=== PATIENT | female | born 1940 | race Asian ===

== ENCOUNTER 2021-11-06 18:28 | Inpatient (IN) | payer MEDICARE, OTHER ==
[~2021-11-06] VITALS: Ht 162.6 cm; Wt 105.2 kg
[2021-11-06] MEDS ORDERED: CARV6.25 PO (18:53)
[2021-11-06] MEDS ORDERED: CLOP75TA2 PO (18:53)
[2021-11-06] MEDS ORDERED: SIMV40TA20 PO (18:53)
[2021-11-06] MEDS ORDERED: WARF-23 PO (18:53)
[2021-11-06 19:25] LABS: HEMATOCRIT 48.3 % (36.0-47.0); MEAN CORPUSCULAR HEMOGLOBIN 32.3 pg (27.0-33.0); MEAN CORPUSCULAR HGB CONC 31.1 g/dl (32.0-36.5); MEAN CORPUSCULAR VOLUME 104.1 fl (80.0-96.0); RED BLOOD COUNT 4.64 10^6/uL (4.00-5.40); WHITE BLOOD COUNT 4.2 10^3/uL (4.0-10.0)
[2021-11-06 19:57] LABS: PLATELET COUNT, AUTOMATED 97 10^3/uL (150-450)
[2021-11-06 20:07] LABS: ALBUMIN 3.3 GM/DL (3.2-5.2); BILIRUBIN,DIRECT 0.2 MG/DL (0.0-0.2); BILIRUBIN,TOTAL 1.4 MG/DL (0.2-1.0); CALCIUM LEVEL 9.2 MG/DL (8.8-10.2); CREATININE FOR GFR 2.11 MG/DL (0.55-1.30); FREE T4 1.28 NG/DL (0.76-1.46); POTASSIUM SERUM 5.8 MEQ/L (3.5-5.1); THYROID STIMULATING HORMONE 10.7 uIU/ML (0.358-3.740)
[2021-11-06 20:08] LABS: ATYPICAL LYMPH 2 % (0-5); BASOPHILS 2 % (0-1); EOSINOPHILS 1 % (0-3); LYMPHOCYTES 33 % (16-44); MONOCYTES 2 % (0-5); NEUTROPHILS 60 % (28-66)
[2021-11-06 20:09] LABS: ANISOCYTOSIS 1+; PLATELET ESTIMATE DECREASED (NORMAL)
[2021-11-06] MEDS ORDERED: FUROSEMIDE 40MG/4ML VIAL (J1940) IV ONE (20:10)
[2021-11-06 20:18] LABS: CK-MB VALUE MASS 11.6 NG/ML (<3.6); MB/CK RELATIVE INDEX 5.95 (< OR =4)
[2021-11-06] MEDS ORDERED: HOME MED LIST COMPLETE! XX SCH (21:15)
[2021-11-06] MEDS ORDERED: BENZONATATE 100MG CAPSULE PO PRN (21:15)
[2021-11-06] MEDS ORDERED: IPRATROPIUM 0.5MG/ALBUTEROL 2.5MG INH SOL UD 3ML (DUONEB) NEB PRN (21:15)
[2021-11-06 23:01] LABS: MB/CK RELATIVE INDEX 5.58 (< OR =4)
[2021-11-06 23:28] LABS: INR 2.5; PROTHROMBIN TIME 27.4 SECONDS (12.7-14.5)
[2021-11-06 23:30] LABS: PARTIAL THROMBOPLASTIN TIME 86.1 SECONDS (25.9-37.0)
[2021-11-07] VITALS (36 sets, daily range): BP systolic 86–150; BP diastolic 47–93; O2SAT 89–98
[2021-11-07 02:40] LABS: CK-MB VALUE MASS 13.3 NG/ML (<3.6); MB/CK RELATIVE INDEX 6.58 (< OR =4)
[2021-11-07] MEDS ORDERED: ALBUTEROL SULFATE 2.5 MG/0.5 ML INH NEB SOLN NEB PRN (04:05)
[2021-11-07] MEDS: IPRATROPIUM 0.5MG/ALBUTEROL 2.5MG INH SOL UD 3ML (DUONEB) NEB SCH ×2 (04:50→08:00)
[2021-11-07 04:59] LABS: ABG BASE EXCESS -4.5 (-2.0-2.0); ABG HCO3 23.1 MEQ/L (22.0-26.0); ABG O2 SATURATION 97.2 % (95.0-99.0); ABG PARTIAL PRESSURE CO2 52.6 mmHg (35.0-45.0); ABG STANDARD HCO3 20.8 MEQ/L (22.0-26.0); ABG TOTAL CO2 24.7 MEQ/L (23.0-31.0); ABG pH (ARTERIAL) 7.261 UNITS (7.350-7.450)
[2021-11-07] MEDS ORDERED: FUROSEMIDE 40MG/4ML VIAL (J1940) IV ONE ×2 (05:00→19:55)
[2021-11-07 06:11] LABS: VENOUS BASE EXCESS -4.6 (-2.0-2.0); VENOUS HCO3 23.6 MEQ/L (23.0-27.0); VENOUS O2 SATURATION 91.9 % (60.0-80.0); VENOUS PARTIAL PRESSURE CO2 56.2 mmHg (38.0-50.0); VENOUS PARTIAL PRESSURE O2 72.8 mmHg (30.0-50.0); VENOUS PH 7.241 UNITS (7.330-7.430); VENOUS STANDARD HCO3 20.6 MEQ/L; VENOUS TOTAL CO2 25.3 MEQ/L (24.0-28.0)
[2021-11-07 06:18] LABS: BASO % 0.5 % (0.0-1.0); EOS # 0.1 10^3/uL (0.0-0.5); EOS % 1.8 % (0.0-3.0); HEMATOCRIT 43.3 % (36.0-47.0); HEMOGLOBIN 13.6 g/dl (12.0-15.5); LYMPH # 1.2 10^3/uL (1.5-5.0); LYMPH % 31.6 % (24.0-44.0); MEAN CORPUSCULAR HEMOGLOBIN 32.5 pg (27.0-33.0); MEAN CORPUSCULAR HGB CONC 31.4 g/dl (32.0-36.5); MEAN CORPUSCULAR VOLUME 103.3 fl (80.0-96.0); MONO # 0.5 10^3/uL (0.0-0.8); MONO % 11.7 % (2.0-8.0); NEUTROPHILS # 2.1 10^3/uL (1.5-8.5); NEUTROPHILS % 54.1 % (36.0-66.0); RED BLOOD COUNT 4.19 10^6/uL (4.00-5.40); WHITE BLOOD COUNT 3.9 10^3/uL (4.0-10.0)
[2021-11-07 06:28] LABS: INR 2.84; PROTHROMBIN TIME 30.2 SECONDS (12.7-14.5)
[2021-11-07] MEDS: AZITHROMYCIN INJ 500 MG, VIAL MATE ADAPTER 1 EACH in NS 250 ML IV SCH (06:29)
[2021-11-07] MEDS ORDERED: PLAV1TAB2 PO (06:40)
[2021-11-07] MEDS ORDERED: CARV6.25 PO (06:40)
[2021-11-07] MEDS ORDERED: FURO40TA2 PO (06:40)
[2021-11-07] MEDS ORDERED: SIMV40TA20 PO (06:40)
[2021-11-07] MEDS ORDERED: WARF-23 PO (06:40)
[2021-11-07] MEDS ORDERED: PATIENT COMMENT (06:40)
[2021-11-07 06:43] LABS: PLATELET COUNT, AUTOMATED 57 10^3/uL (150-450)
[2021-11-07 06:47] LABS: HEMOGLOBIN A1c 5.5 %
[2021-11-07 06:51] LABS: CK-MB VALUE MASS 14.1 NG/ML (<3.6); MB/CK RELATIVE INDEX 7.54 (< OR =4)
[2021-11-07 07:01] LABS: CALCIUM LEVEL 9.2 MG/DL (8.8-10.2); CREATININE FOR GFR 1.88 MG/DL (0.55-1.30); GLOMERULAR FILTRATION RATE 27.4 (>32)
[2021-11-07 07:02] LABS: PHOSPHORUS LEVEL 4.6 MG/DL (2.5-4.9)
[2021-11-07] MEDS: cefTRIAXone SOD 1 GM in D5W MINI-BAG PLUS 50 ML IV SCH (08:59)
[2021-11-07] MEDS: FUROSEMIDE 40MG/4ML VIAL (J1940) IV SCH ×2 (09:00→18:29)
[2021-11-07 09:42] LABS: PTH INTACT 281.5 PG/ML (18.5-88.0)
[2021-11-07] MEDS ORDERED: D10W 1,000 ML IV SCH (12:30)
[2021-11-07] MEDS ORDERED: DEXTROSE 50% 50 ML SYRINGE IV STA ×2 (12:32)
[2021-11-07] MEDS ORDERED: LIDOCAINE 1% MDV 20ML VIAL As Ordered ONE (12:33)
[2021-11-07] MEDS ORDERED: GLUCAGON INJ 1MG VIAL SC PRN (12:35)
[2021-11-07] MEDS ORDERED: DEXTROSE 50% 50 ML SYRINGE IV PRN (12:35)
[2021-11-07] MEDS ORDERED: GLUCOSE 4GM CHEW TABLET PO PRN (12:35)
[2021-11-07] MEDS: CLOPIDOGREL 75 MG TAB PO SCH (13:31)
[2021-11-07] MEDS: LEVALBUTEROL 1.25 MG/0.5 ML CONCENTRATE NEB NEB SCH ×3 (13:46→19:49)
[2021-11-07] MEDS ORDERED: DOBUTamine HCL 500,000 MCG in IV 1 EA IV SCH (16:35)
[2021-11-07] MEDS ORDERED: WARFARIN SOD 5MG TAB PO SCH (17:00)
[2021-11-07] MEDS ORDERED: DOPamine HCL 400 MG in IV 1 EA IV SCH (17:05)
[2021-11-07 17:35] LABS: ABG BASE EXCESS -5.1 (-2.0-2.0); ABG HCO3 20.7 MEQ/L (22.0-26.0); ABG O2 SATURATION 98.6 % (95.0-99.0); ABG PARTIAL PRESSURE CO2 41.1 mmHg (35.0-45.0); ABG PARTIAL PRESSURE O2 125.7 mmHg (75.0-100.0); ABG STANDARD HCO3 20.3 MEQ/L (22.0-26.0)
[2021-11-07] MEDS: DOBUTamine HCL 500,000 MCG in IV 1 EA IV SCH (18:34)
[2021-11-07] MEDS: SIMVASTATIN 40 MG TAB PO SCH ×3 (20:21→20:29)
[2021-11-08] VITALS (24 sets, daily range): BP systolic 104–142; BP diastolic 21–91
[2021-11-08] MEDS: FUROSEMIDE 40MG/4ML VIAL (J1940) IV SCH ×6 (00:13→20:00)
[2021-11-08] MEDS: AZITHROMYCIN INJ 500 MG, VIAL MATE ADAPTER 1 EACH in NS 250 ML IV SCH (04:16)
[2021-11-08 04:58] LABS: BASO % 0.5 % (0.0-1.0); EOS # 0.1 10^3/uL (0.0-0.5); EOS % 1.6 % (0.0-3.0); HEMATOCRIT 41.5 % (36.0-47.0); HEMOGLOBIN 13.1 g/dl (12.0-15.5); LYMPH # 1.1 10^3/uL (1.5-5.0); LYMPH % 24.9 % (24.0-44.0); MEAN CORPUSCULAR HEMOGLOBIN 32.6 pg (27.0-33.0); MEAN CORPUSCULAR HGB CONC 31.6 g/dl (32.0-36.5); MEAN CORPUSCULAR VOLUME 103.2 fl (80.0-96.0); MONO # 0.5 10^3/uL (0.0-0.8); MONO % 11.9 % (2.0-8.0); NEUTROPHILS # 2.6 10^3/uL (1.5-8.5); NEUTROPHILS % 60.6 % (36.0-66.0); RED BLOOD COUNT 4.02 10^6/uL (4.00-5.40); WHITE BLOOD COUNT 4.3 10^3/uL (4.0-10.0)
[2021-11-08 05:01] LABS: PLATELET COUNT, AUTOMATED 61 10^3/uL (150-450)
[2021-11-08 05:11] LABS: CALCIUM LEVEL 8.9 MG/DL (8.8-10.2); CREATININE FOR GFR 1.91 MG/DL (0.55-1.30); GLOMERULAR FILTRATION RATE 26.9 (>32); INR 3.12; POTASSIUM SERUM 3.7 MEQ/L (3.5-5.1); PROTHROMBIN TIME 32.4 SECONDS (12.7-14.5); TOTAL PROTEIN 5.9 GM/DL (6.4-8.2)
[2021-11-08] MEDS: cefTRIAXone SOD 1 GM in D5W MINI-BAG PLUS 50 ML IV SCH (05:36)
[2021-11-08] MEDS: LEVALBUTEROL 1.25 MG/0.5 ML CONCENTRATE NEB NEB SCH ×4 (07:43→19:46)
[2021-11-08] MEDS: CLOPIDOGREL 75 MG TAB PO SCH (09:00)
[2021-11-08] MEDS: SODIUM CHLORIDE 0.9% INJ 10 ML SYR IV SCH (17:59)
[2021-11-08] MEDS: ACETAMINOPHEN TAB 650MG DOSE (2X325MG) PO PRN (18:00)
[2021-11-08] MEDS: DOBUTamine HCL 500,000 MCG in IV 1 EA IV SCH (18:01)
[2021-11-08 19:01] LABS: CALCIUM LEVEL 8.6 MG/DL (8.8-10.2); CREATININE FOR GFR 1.79 MG/DL (0.55-1.30); POTASSIUM SERUM 3.4 MEQ/L (3.5-5.1)
[2021-11-08] MEDS ORDERED: POTASSIUM CHLORIDE 10MEQ SR TABLET PO ONE (20:00)
[2021-11-08] MEDS: SIMVASTATIN 40 MG TAB PO SCH (20:50)
[2021-11-08] MEDS ORDERED: POTASSIUM CHLORIDE 10% LIQ 20 MEQ/15 ML UDC PO ONE (21:00)
[2021-11-09] VITALS (22 sets, daily range): BP systolic 101–155; BP diastolic 58–81
[2021-11-09] MEDS: FUROSEMIDE 40MG/4ML VIAL (J1940) IV SCH ×6 (00:22→19:31)
[2021-11-09] MEDS: AZITHROMYCIN INJ 500 MG, VIAL MATE ADAPTER 1 EACH in NS 250 ML IV SCH (03:47)
[2021-11-09] MEDS: cefTRIAXone SOD 1 GM in D5W MINI-BAG PLUS 50 ML IV SCH (05:08)
[2021-11-09] MEDS: SODIUM CHLORIDE 0.9% INJ 10 ML SYR IV SCH ×2 (05:09→18:12)
[2021-11-09 05:38] LABS: BASO % 0.6 % (0.0-1.0); EOS # 0.1 10^3/uL (0.0-0.5); HEMATOCRIT 40.8 % (36.0-47.0); LYMPH % 30.2 % (24.0-44.0); MEAN CORPUSCULAR HEMOGLOBIN 32.7 pg (27.0-33.0); MEAN CORPUSCULAR HGB CONC 31.9 g/dl (32.0-36.5); MEAN CORPUSCULAR VOLUME 102.5 fl (80.0-96.0); MONO # 0.4 10^3/uL (0.0-0.8); MONO % 10.4 % (2.0-8.0); NEUTROPHILS # 1.9 10^3/uL (1.5-8.5); NEUTROPHILS % 55.8 % (36.0-66.0); RED BLOOD COUNT 3.98 10^6/uL (4.00-5.40); WHITE BLOOD COUNT 3.4 10^3/uL (4.0-10.0)
[2021-11-09 05:46] LABS: PLATELET COUNT, AUTOMATED 62 10^3/uL (150-450)
[2021-11-09 05:49] LABS: INR 3.36; PROTHROMBIN TIME 34.3 SECONDS (12.7-14.5)
[2021-11-09 05:53] LABS: ALBUMIN 2.9 GM/DL (3.2-5.2); BILIRUBIN,TOTAL 0.8 MG/DL (0.2-1.0); CALCIUM LEVEL 8.9 MG/DL (8.8-10.2); CREATININE FOR GFR 1.72 MG/DL (0.55-1.30); GLOMERULAR FILTRATION RATE 30.4 (>32); POTASSIUM SERUM 3.3 MEQ/L (3.5-5.1); TOTAL PROTEIN 5.9 GM/DL (6.4-8.2)
[2021-11-09 06:17] LABS: MAGNESIUM LEVEL 1.9 MG/DL (1.8-2.4)
[2021-11-09] MEDS ORDERED: POTASSIUM CHLORIDE 10% LIQ 20 MEQ/15 ML UDC PO ONE ×2 (07:00→16:05)
[2021-11-09] MEDS: LEVALBUTEROL 1.25 MG/0.5 ML CONCENTRATE NEB NEB SCH ×4 (07:42→20:14)
[2021-11-09 11:10] LABS: PHOSPHORUS LEVEL 3.7 MG/DL (2.5-4.9)
[2021-11-09 15:27] LABS: ALBUMIN 2.9 GM/DL (3.2-5.2); BILIRUBIN,TOTAL 0.7 MG/DL (0.2-1.0); CALCIUM LEVEL 8.7 MG/DL (8.8-10.2); CREATININE FOR GFR 1.59 MG/DL (0.55-1.30); GLOMERULAR FILTRATION RATE 33.3 (>32); POTASSIUM SERUM 3.3 MEQ/L (3.5-5.1)
[2021-11-09] MEDS: DOBUTamine HCL 500,000 MCG in IV 1 EA IV SCH (18:14)
[2021-11-09] MEDS: SIMVASTATIN 40 MG TAB PO SCH (21:37)
[2021-11-09] MEDS: ACETAMINOPHEN TAB 650MG DOSE (2X325MG) PO PRN (21:38)
[2021-11-10] VITALS (24 sets, daily range): BP systolic 94–151; BP diastolic 55–79
[2021-11-10] MEDS: FUROSEMIDE 40MG/4ML VIAL (J1940) IV SCH ×5 (00:31→18:00)
[2021-11-10] MEDS: AZITHROMYCIN INJ 500 MG, VIAL MATE ADAPTER 1 EACH in NS 250 ML IV SCH (03:58)
[2021-11-10] MEDS: SODIUM CHLORIDE 0.9% INJ 10 ML SYR IV SCH ×2 (05:28→18:00)
[2021-11-10] MEDS: cefTRIAXone SOD 1 GM in D5W MINI-BAG PLUS 50 ML IV SCH (05:28)
[2021-11-10 06:02] LABS: INR 3.5; PROTHROMBIN TIME 35.4 SECONDS (12.7-14.5)
[2021-11-10 06:14] LABS: ALBUMIN 2.9 GM/DL (3.2-5.2); BILIRUBIN,TOTAL 0.8 MG/DL (0.2-1.0); CALCIUM LEVEL 8.4 MG/DL (8.8-10.2); CREATININE FOR GFR 1.45 MG/DL (0.55-1.30); POTASSIUM SERUM 3.3 MEQ/L (3.5-5.1); TOTAL PROTEIN 5.9 GM/DL (6.4-8.2)
[2021-11-10] MEDS: LEVALBUTEROL 1.25 MG/0.5 ML CONCENTRATE NEB NEB SCH ×4 (07:22→19:56)
[2021-11-10] MEDS ORDERED: POTASSIUM CHLORIDE 10MEQ SR TABLET PO ONE (07:45)
[2021-11-10] MEDS ORDERED: POTASSIUM CHLORIDE 10% LIQ 20 MEQ/15 ML UDC PO ONE (08:15)
[2021-11-10] MEDS: POTASSIUM CHLORIDE 10% LIQ 20 MEQ/15 ML UDC PO SCH ×2 (08:38→20:28)
[2021-11-10 08:55] LABS: HEMATOCRIT 41.1 % (36.0-47.0); HEMOGLOBIN 13.1 g/dl (12.0-15.5); MEAN CORPUSCULAR HEMOGLOBIN 32.3 pg (27.0-33.0); MEAN CORPUSCULAR HGB CONC 31.9 g/dl (32.0-36.5); MEAN CORPUSCULAR VOLUME 101.5 fl (80.0-96.0); RED BLOOD COUNT 4.05 10^6/uL (4.00-5.40); WHITE BLOOD COUNT 3.6 10^3/uL (4.0-10.0)
[2021-11-10 08:57] LABS: PLATELET COUNT, AUTOMATED 57 10^3/uL (150-450)
[2021-11-10] MEDS ORDERED: POTASSIUM CHLORIDE 10MEQ SR TABLET PO SCH (09:00)
[2021-11-10] MEDS ORDERED: VARIBAR PUDDING 40% w/v 230ML TUBE As Ordered ONE (11:50)
[2021-11-10] MEDS ORDERED: BARIUM SULFATE 700 MG TABLET (E-Z-DISK) As Ordered ONE (11:51)
[2021-11-10] MEDS ORDERED: E-Z-PAQUE 96% w/w SUSP 176GM BTL As Ordered ONE (11:51)
[2021-11-10] MEDS ORDERED: VARIBAR NECTAR 40% w/v 240ML SUSP BTL As Ordered ONE (11:51)
[2021-11-10 11:52] LABS: CORTISOL AM 16.8 UG/DL (4.3-22.4)
[2021-11-10] MEDS: CLOPIDOGREL 75 MG TAB PO SCH (14:11)
[2021-11-10] MEDS: SIMVASTATIN 40 MG TAB PO SCH (20:28)
[2021-11-11] VITALS (15 sets, daily range): BP systolic 98–132; BP diastolic 56–89
[2021-11-11] MEDS: FUROSEMIDE 40MG/4ML VIAL (J1940) IV SCH ×4 (00:09→18:31)
[2021-11-11] MEDS: AZITHROMYCIN INJ 500 MG, VIAL MATE ADAPTER 1 EACH in NS 250 ML IV SCH (03:39)
[2021-11-11] MEDS: LEVALBUTEROL 1.25 MG/0.5 ML CONCENTRATE NEB NEB PRN (05:04)
[2021-11-11] MEDS: cefTRIAXone SOD 1 GM in D5W MINI-BAG PLUS 50 ML IV SCH (05:14)
[2021-11-11 05:46] LABS: HEMATOCRIT 40.9 % (36.0-47.0); HEMOGLOBIN 13.2 g/dl (12.0-15.5); MEAN CORPUSCULAR HEMOGLOBIN 32.4 pg (27.0-33.0); MEAN CORPUSCULAR HGB CONC 32.3 g/dl (32.0-36.5); MEAN CORPUSCULAR VOLUME 100.5 fl (80.0-96.0); RED BLOOD COUNT 4.07 10^6/uL (4.00-5.40); WHITE BLOOD COUNT 3.7 10^3/uL (4.0-10.0)
[2021-11-11 05:50] LABS: PLATELET COUNT, AUTOMATED 61 10^3/uL (150-450)
[2021-11-11 05:57] LABS: INR 2.73; PROTHROMBIN TIME 29.3 SECONDS (12.7-14.5)
[2021-11-11 06:14] LABS: ALBUMIN 2.7 GM/DL (3.2-5.2); CALCIUM LEVEL 8.2 MG/DL (8.8-10.2); CREATININE FOR GFR 1.32 MG/DL (0.55-1.30); GLOMERULAR FILTRATION RATE 41.2 (>32); POTASSIUM SERUM 3.8 MEQ/L (3.5-5.1); TOTAL PROTEIN 6.1 GM/DL (6.4-8.2)
[2021-11-11] MEDS: SODIUM CHLORIDE 0.9% INJ 10 ML SYR IV SCH ×2 (06:40→18:31)
[2021-11-11] MEDS: LEVALBUTEROL 1.25 MG/0.5 ML CONCENTRATE NEB NEB SCH ×4 (07:58→20:00)
[2021-11-11] MEDS: POTASSIUM CHLORIDE 10% LIQ 20 MEQ/15 ML UDC PO SCH ×2 (09:05→20:31)
[2021-11-11] MEDS: CLOPIDOGREL 75 MG TAB PO SCH (09:05)
[2021-11-11] MEDS: CARVedilol 3.125 MG TAB PO SCH ×2 (10:52→20:31)
[2021-11-11 14:08] LABS: BODY FLUID CULTURE Not indicated. (.); LEGIONELLA ANTIGEN URINE Negative (Negative); ORGANISM ID Not indicated. (.); SPECIMEN SOURCE Urine (.); URINE STREP PNEUMONIAE ANTIGEN Negative (Negative)
[2021-11-11] MEDS: SIMVASTATIN 40 MG TAB PO SCH (20:31)
[2021-11-12] VITALS: BP 144/91
[2021-11-12] MEDS: FUROSEMIDE 40MG/4ML VIAL (J1940) IV SCH ×5 (01:00→23:56)
[2021-11-12 04:00] VITALS: BP 108/74
[2021-11-12 05:31] LABS: HEMATOCRIT 43.3 % (36.0-47.0); HEMOGLOBIN 13.8 g/dl (12.0-15.5); MEAN CORPUSCULAR HEMOGLOBIN 32.4 pg (27.0-33.0); MEAN CORPUSCULAR HGB CONC 31.9 g/dl (32.0-36.5); MEAN CORPUSCULAR VOLUME 101.6 fl (80.0-96.0); RED BLOOD COUNT 4.26 10^6/uL (4.00-5.40); WHITE BLOOD COUNT 3.5 10^3/uL (4.0-10.0)
[2021-11-12 05:32] LABS: PLATELET COUNT, AUTOMATED 62 10^3/uL (150-450)
[2021-11-12 05:51] LABS: CALCIUM LEVEL 8.9 MG/DL (8.8-10.2); CREATININE FOR GFR 1.25 MG/DL (0.55-1.30); GLOMERULAR FILTRATION RATE 43.9 (>32); POTASSIUM SERUM 3.4 MEQ/L (3.5-5.1); TOTAL PROTEIN 6.5 GM/DL (6.4-8.2)
[2021-11-12] MEDS: SODIUM CHLORIDE 0.9% INJ 10 ML SYR IV SCH ×2 (06:26→17:15)
[2021-11-12] MEDS: LEVALBUTEROL 1.25 MG/0.5 ML CONCENTRATE NEB NEB SCH ×4 (07:46→21:12)
[2021-11-12 08:00] VITALS: BP 99/70
[2021-11-12] MEDS: CARVedilol 3.125 MG TAB PO SCH ×2 (08:05→21:00)
[2021-11-12] MEDS: POTASSIUM CHLORIDE 10% LIQ 20 MEQ/15 ML UDC PO SCH ×2 (08:45→21:26)
[2021-11-12] MEDS: AZITHROMYCIN 250MG TABLET PO SCH (08:45)
[2021-11-12] MEDS: CEFDINIR 300 MG CAP (OMNICEF) PO SCH ×2 (08:45→21:26)
[2021-11-12] MEDS: CLOPIDOGREL 75 MG TAB PO SCH (08:46)
[2021-11-12 11:55] VITALS: BP 136/88
[2021-11-12 15:43] LABS: INR 2.27; PROTHROMBIN TIME 25.4 SECONDS (12.7-14.5)
[2021-11-12 16:00] VITALS: BP 108/82
[2021-11-12] MEDS: WARFARIN SOD 5MG TAB PO SCH (17:13)
[2021-11-12 20:00] VITALS: BP 118/82
[2021-11-12] MEDS: SIMVASTATIN 40 MG TAB PO SCH (21:26)
[2021-11-13] VITALS: BP 119/86
[2021-11-13 04:00] VITALS: BP 130/81
[2021-11-13] MEDS: FUROSEMIDE 40MG/4ML VIAL (J1940) IV SCH ×2 (04:34→11:43)
[2021-11-13] MEDS: SODIUM CHLORIDE 0.9% INJ 10 ML SYR IV SCH ×2 (04:35→17:24)
[2021-11-13 04:49] LABS: HEMATOCRIT 45.2 % (36.0-47.0); HEMOGLOBIN 14.4 g/dl (12.0-15.5); MEAN CORPUSCULAR HEMOGLOBIN 32.3 pg (27.0-33.0); MEAN CORPUSCULAR HGB CONC 31.9 g/dl (32.0-36.5); MEAN CORPUSCULAR VOLUME 101.3 fl (80.0-96.0); RED BLOOD COUNT 4.46 10^6/uL (4.00-5.40); WHITE BLOOD COUNT 5.3 10^3/uL (4.0-10.0)
[2021-11-13 04:55] LABS: PLATELET COUNT, AUTOMATED 63 10^3/uL (150-450)
[2021-11-13 05:22] LABS: INR 2.26; PROTHROMBIN TIME 25.3 SECONDS (12.7-14.5)
[2021-11-13 05:35] LABS: ALBUMIN 3.2 GM/DL (3.2-5.2); BILIRUBIN,TOTAL 1.3 MG/DL (0.2-1.0); CALCIUM LEVEL 8.7 MG/DL (8.8-10.2); CREATININE FOR GFR 1.26 MG/DL (0.55-1.30); GLOMERULAR FILTRATION RATE 43.5 (>32); POTASSIUM SERUM 3.6 MEQ/L (3.5-5.1); TOTAL PROTEIN 6.5 GM/DL (6.4-8.2)
[2021-11-13 07:47] VITALS: BP 114/68
[2021-11-13] MEDS: CARVedilol 3.125 MG TAB PO SCH ×2 (08:49→20:23)
[2021-11-13] MEDS: POTASSIUM CHLORIDE 10% LIQ 20 MEQ/15 ML UDC PO SCH ×2 (09:01→20:22)
[2021-11-13] MEDS: CEFDINIR 300 MG CAP (OMNICEF) PO SCH ×2 (09:01→20:22)
[2021-11-13] MEDS: CLOPIDOGREL 75 MG TAB PO SCH (09:02)
[2021-11-13] MEDS: AZITHROMYCIN 250MG TABLET PO SCH (09:02)
[2021-11-13] MEDS: LEVALBUTEROL 1.25 MG/0.5 ML CONCENTRATE NEB NEB SCH ×2 (11:45→13:35)
[2021-11-13 12:04] VITALS: BP 111/83
[2021-11-13 16:43] VITALS: BP 131/92
[2021-11-13] MEDS: WARFARIN SOD 5MG TAB PO SCH (17:24)
[2021-11-13 20:12] VITALS: BP 107/71
[2021-11-13] MEDS: SIMVASTATIN 40 MG TAB PO SCH (20:22)
[2021-11-14 00:24] VITALS: BP 125/91
[2021-11-14] MEDS: FUROSEMIDE 40MG/4ML VIAL (J1940) IV SCH ×4 (00:47→23:33)
[2021-11-14 04:00] VITALS: BP 119/89
[2021-11-14 05:31] LABS: HEMATOCRIT 44.7 % (36.0-47.0); HEMOGLOBIN 14.1 g/dl (12.0-15.5); MEAN CORPUSCULAR HEMOGLOBIN 32.4 pg (27.0-33.0); MEAN CORPUSCULAR HGB CONC 31.5 g/dl (32.0-36.5); MEAN CORPUSCULAR VOLUME 102.8 fl (80.0-96.0); PLATELET COUNT, AUTOMATED 64 10^3/uL (150-450); RED BLOOD COUNT 4.35 10^6/uL (4.00-5.40); WHITE BLOOD COUNT 5.2 10^3/uL (4.0-10.0)
[2021-11-14 05:41] LABS: INR 3.39; PROTHROMBIN TIME 34.5 SECONDS (12.7-14.5)
[2021-11-14] MEDS: SODIUM CHLORIDE 0.9% INJ 10 ML SYR IV SCH ×2 (06:03→17:57)
[2021-11-14 06:11] LABS: CALCIUM LEVEL 8.6 MG/DL (8.8-10.2); CREATININE FOR GFR 1.18 MG/DL (0.55-1.30); GLOMERULAR FILTRATION RATE 46.9 (>32); POTASSIUM SERUM 3.7 MEQ/L (3.5-5.1); TOTAL PROTEIN 6.3 GM/DL (6.4-8.2)
[2021-11-14 08:35] VITALS: BP 107/71
[2021-11-14] MEDS: CLOPIDOGREL 75 MG TAB PO SCH (08:36)
[2021-11-14] MEDS: POTASSIUM CHLORIDE 10% LIQ 20 MEQ/15 ML UDC PO SCH ×2 (08:36→20:40)
[2021-11-14] MEDS: CARVedilol 3.125 MG TAB PO SCH ×2 (08:36→20:41)
[2021-11-14 13:42] VITALS: BP 110/80
[2021-11-14] MEDS: SODIUM CHLORIDE 0.9% INJ 10 ML SYR IV PRN (16:01)
[2021-11-14 17:16] VITALS: BP 112/69
[2021-11-14 20:16] VITALS: BP 116/83
[2021-11-14] MEDS: SIMVASTATIN 40 MG TAB PO SCH (20:40)
[2021-11-15] VITALS (10 sets, daily range): BP systolic 86–133; BP diastolic 58–89; O2SAT 95–97
[2021-11-15] MEDS: SODIUM CHLORIDE 0.9% INJ 10 ML SYR IV SCH ×2 (04:55→18:04)
[2021-11-15 05:04] LABS: HEMATOCRIT 44.8 % (36.0-47.0); HEMOGLOBIN 13.7 g/dl (12.0-15.5); MEAN CORPUSCULAR HEMOGLOBIN 32.3 pg (27.0-33.0); MEAN CORPUSCULAR HGB CONC 30.6 g/dl (32.0-36.5); MEAN CORPUSCULAR VOLUME 105.7 fl (80.0-96.0); RED BLOOD COUNT 4.24 10^6/uL (4.00-5.40); WHITE BLOOD COUNT 4.6 10^3/uL (4.0-10.0)
[2021-11-15 05:09] LABS: PLATELET COUNT, AUTOMATED 68 10^3/uL (150-450)
[2021-11-15 05:14] LABS: INR 4.75; PROTHROMBIN TIME 44.7 SECONDS (12.7-14.5)
[2021-11-15 05:35] LABS: ALBUMIN 2.9 GM/DL (3.2-5.2); BILIRUBIN,TOTAL 1.2 MG/DL (0.2-1.0); CALCIUM LEVEL 8.6 MG/DL (8.8-10.2); CREATININE FOR GFR 1.16 MG/DL (0.55-1.30); GLOMERULAR FILTRATION RATE 47.9 (>32); POTASSIUM SERUM 3.4 MEQ/L (3.5-5.1); TOTAL PROTEIN 6.4 GM/DL (6.4-8.2)
[2021-11-15] MEDS: POTASSIUM CHLORIDE 10% LIQ 20 MEQ/15 ML UDC PO SCH ×2 (08:08→20:14)
[2021-11-15] MEDS: CLOPIDOGREL 75 MG TAB PO SCH (08:08)
[2021-11-15] MEDS: CARVedilol 3.125 MG TAB PO SCH ×2 (09:00→20:15)
[2021-11-15] MEDS: FUROSEMIDE 40MG/4ML VIAL (J1940) IV SCH ×3 (09:35→23:37)
[2021-11-15] MEDS: SODIUM CHLORIDE 0.9% INJ 10 ML SYR IV PRN ×2 (09:35→16:00)
[2021-11-15] MEDS: MIDODRINE 2.5 MG TAB PO SCH ×3 (09:35→15:58)
[2021-11-15] MEDS: SIMVASTATIN 40 MG TAB PO SCH (20:15)
[2021-11-16] VITALS (17 sets, daily range): BP systolic 101–116; BP diastolic 62–81; O2SAT 82–97
[2021-11-16] MEDS: SODIUM CHLORIDE 0.9% INJ 10 ML SYR IV SCH ×2 (05:09→16:18)
[2021-11-16 05:46] LABS: INR 3.95; PROTHROMBIN TIME 38.8 SECONDS (12.7-14.5)
[2021-11-16 07:51] LABS: HEMATOCRIT 43.9 % (36.0-47.0); HEMOGLOBIN 13.5 g/dl (12.0-15.5); MEAN CORPUSCULAR HEMOGLOBIN 32.5 pg (27.0-33.0); MEAN CORPUSCULAR HGB CONC 30.8 g/dl (32.0-36.5); MEAN CORPUSCULAR VOLUME 105.5 fl (80.0-96.0); PLATELET COUNT, AUTOMATED 70 10^3/uL (150-450); RED BLOOD COUNT 4.16 10^6/uL (4.00-5.40); WHITE BLOOD COUNT 4.6 10^3/uL (4.0-10.0)
[2021-11-16] MEDS: POTASSIUM CHLORIDE 10% LIQ 20 MEQ/15 ML UDC PO SCH ×2 (08:05→20:10)
[2021-11-16] MEDS: FUROSEMIDE 40MG/4ML VIAL (J1940) IV SCH ×2 (08:06→16:17)
[2021-11-16] MEDS: CLOPIDOGREL 75 MG TAB PO SCH (08:06)
[2021-11-16] MEDS: CARVedilol 3.125 MG TAB PO SCH ×2 (08:07→20:10)
[2021-11-16] MEDS: SODIUM CHLORIDE 0.9% INJ 10 ML SYR IV PRN (08:07)
[2021-11-16] MEDS: MIDODRINE 2.5 MG TAB PO SCH ×2 (08:07→11:54)
[2021-11-16 08:59] LABS: CALCIUM LEVEL 8.8 MG/DL (8.8-10.2); CREATININE FOR GFR 1.1 MG/DL (0.55-1.30); GLOMERULAR FILTRATION RATE 50.9 (>32); POTASSIUM SERUM 4.1 MEQ/L (3.5-5.1)
[2021-11-16] MEDS: PIPERACILLIN/TAZOBACTAM SOD 3.375 GM in D5W MINI-BAG PLUS 50 ML IV SCH ×2 (14:14→20:11)
[2021-11-16] MEDS: SIMVASTATIN 40 MG TAB PO SCH (20:10)
[2021-11-17] VITALS (12 sets, daily range): BP systolic 110–123; BP diastolic 72–77; O2SAT 93–98
[2021-11-17] MEDS: PIPERACILLIN/TAZOBACTAM SOD 3.375 GM in D5W MINI-BAG PLUS 50 ML IV SCH (01:34)
[2021-11-17] MEDS: SODIUM CHLORIDE 0.9% INJ 10 ML SYR IV SCH ×2 (06:04→17:10)
[2021-11-17 06:08] LABS: HEMATOCRIT 41.7 % (36.0-47.0); MEAN CORPUSCULAR HEMOGLOBIN 32.7 pg (27.0-33.0); MEAN CORPUSCULAR HGB CONC 31.2 g/dl (32.0-36.5); MEAN CORPUSCULAR VOLUME 104.8 fl (80.0-96.0); RED BLOOD COUNT 3.98 10^6/uL (4.00-5.40); WHITE BLOOD COUNT 5.1 10^3/uL (4.0-10.0)
[2021-11-17 06:15] LABS: PLATELET COUNT, AUTOMATED 76 10^3/uL (150-450)
[2021-11-17 06:21] LABS: INR 3.62; PROTHROMBIN TIME 36.3 SECONDS (12.7-14.5)
[2021-11-17 06:36] LABS: CALCIUM LEVEL 8.7 MG/DL (8.8-10.2); CREATININE FOR GFR 1.12 MG/DL (0.55-1.30); GLOMERULAR FILTRATION RATE 49.8 (>32); POTASSIUM SERUM 3.6 MEQ/L (3.5-5.1)
[2021-11-17] MEDS: FUROSEMIDE 40MG/4ML VIAL (J1940) IV SCH ×3 (07:48→17:09)
[2021-11-17] MEDS: POTASSIUM CHLORIDE 10% LIQ 20 MEQ/15 ML UDC PO SCH (07:48)
[2021-11-17] MEDS: CLOPIDOGREL 75 MG TAB PO SCH (07:48)
[2021-11-17] MEDS: CARVedilol 3.125 MG TAB PO SCH ×2 (09:00→21:00)
[2021-11-17] MEDS: SPIRONOLACTONE 25 MG TAB PO SCH (09:03)
[2021-11-17] MEDS: LEVALBUTEROL 1.25 MG/0.5 ML CONCENTRATE NEB NEB PRN (11:26)
[2021-11-17 14:09] LABS: ADRENOCORTICOTROPHIC HORMONE 29.4 pg/mL (7.2-63.3); PTH RELATED PEPTIDE < 2.0 pmol/L (.); VITAMIN B1 LEVEL WHOLE BLOOD 80.8 nmol/L (66.5-200.0)
[2021-11-17] MEDS: SIMVASTATIN 40 MG TAB PO SCH (21:06)
[2021-11-18] MEDS ORDERED: FUROSEMIDE 40 MG TAB PO ONE (02:00)
[2021-11-18 04:00] VITALS: BP 119/81
[2021-11-18 05:00] LABS: HEMATOCRIT 45.4 % (36.0-47.0); HEMOGLOBIN 14.1 g/dl (12.0-15.5); MEAN CORPUSCULAR HEMOGLOBIN 32.6 pg (27.0-33.0); MEAN CORPUSCULAR HGB CONC 31.1 g/dl (32.0-36.5); MEAN CORPUSCULAR VOLUME 104.8 fl (80.0-96.0); RED BLOOD COUNT 4.33 10^6/uL (4.00-5.40); WHITE BLOOD COUNT 4.6 10^3/uL (4.0-10.0)
[2021-11-18 05:04] LABS: PLATELET COUNT, AUTOMATED 80 10^3/uL (150-450)
[2021-11-18 05:10] LABS: INR 2.6; PROTHROMBIN TIME 28.2 SECONDS (12.7-14.5)
[2021-11-18 05:28] LABS: CALCIUM LEVEL 9.2 MG/DL (8.8-10.2); CREATININE FOR GFR 1.3 MG/DL (0.55-1.30); POTASSIUM SERUM 3.8 MEQ/L (3.5-5.1)
[2021-11-18] MEDS: SODIUM CHLORIDE 0.9% INJ 10 ML SYR IV SCH (06:00)
[2021-11-18 08:00] VITALS: BP 104/70
[2021-11-18 08:16] LABS: MAGNESIUM LEVEL 1.5 MG/DL (1.7-2.2)
[2021-11-18] MEDS: POTASSIUM CHLORIDE 10% LIQ 20 MEQ/15 ML UDC PO SCH (08:20)
[2021-11-18] MEDS: SPIRONOLACTONE 25 MG TAB PO SCH (08:20)
[2021-11-18] MEDS: CLOPIDOGREL 75 MG TAB PO SCH (08:20)
[2021-11-18] MEDS: CARVedilol 3.125 MG TAB PO SCH ×2 (08:22→20:33)
[2021-11-18 10:10] VITALS: O2SAT 96
[2021-11-18] MEDS: FUROSEMIDE 40MG/4ML VIAL (J1940) IV SCH ×2 (11:57)
[2021-11-18 12:00] VITALS: O2SAT 95
[2021-11-18 16:00] VITALS: BP 115/79
[2021-11-18 17:39] LABS: MAGNESIUM LEVEL 1.7 MG/DL (1.7-2.2)
[2021-11-18 20:00] VITALS: BP 108/87
[2021-11-18] MEDS: SIMVASTATIN 40 MG TAB PO SCH (20:33)
[2021-11-19] VITALS: BP 118/78
[2021-11-19] MEDS: FUROSEMIDE 40MG/4ML VIAL (J1940) IV SCH ×3 (00:37→23:26)
[2021-11-19] MEDS: LEVALBUTEROL 1.25 MG/0.5 ML CONCENTRATE NEB NEB PRN ×2 (02:39→20:18)
[2021-11-19 04:00] VITALS: BP 122/70
[2021-11-19 05:29] LABS: HEMOGLOBIN 13.9 g/dl (12.0-15.5); MEAN CORPUSCULAR HEMOGLOBIN 32.8 pg (27.0-33.0); MEAN CORPUSCULAR HGB CONC 31.6 g/dl (32.0-36.5); MEAN CORPUSCULAR VOLUME 103.8 fl (80.0-96.0); RED BLOOD COUNT 4.24 10^6/uL (4.00-5.40); WHITE BLOOD COUNT 4.5 10^3/uL (4.0-10.0)
[2021-11-19 05:33] LABS: PLATELET COUNT, AUTOMATED 92 10^3/uL (150-450)
[2021-11-19 05:35] LABS: INR 2.49; PROTHROMBIN TIME 27.3 SECONDS (12.7-14.5)
[2021-11-19 05:48] LABS: CALCIUM LEVEL 9.4 MG/DL (8.8-10.2); CREATININE FOR GFR 1.23 MG/DL (0.55-1.30); GLOMERULAR FILTRATION RATE 44.7 (>32); POTASSIUM SERUM 3.9 MEQ/L (3.5-5.1)
[2021-11-19 08:05] VITALS: BP 120/68
[2021-11-19] MEDS: POTASSIUM CHLORIDE 10% LIQ 20 MEQ/15 ML UDC PO SCH (08:38)
[2021-11-19] MEDS: CLOPIDOGREL 75 MG TAB PO SCH (08:38)
[2021-11-19] MEDS: SPIRONOLACTONE 25 MG TAB PO SCH (08:38)
[2021-11-19] MEDS: CARVedilol 3.125 MG TAB PO SCH ×2 (08:39→20:21)
[2021-11-19 11:34] VITALS: BP 125/81
[2021-11-19 14:03] VITALS: BP 106/68
[2021-11-19 19:53] LABS: MAGNESIUM LEVEL 1.7 MG/DL (1.7-2.2)
[2021-11-19] MEDS: SIMVASTATIN 40 MG TAB PO SCH (20:21)
[2021-11-19 22:00] VITALS: BP 108/70
[2021-11-20 06:00] VITALS: BP 126/82
[2021-11-20 07:22] LABS: HEMATOCRIT 43.6 % (36.0-47.0); HEMOGLOBIN 13.7 g/dl (12.0-15.5); MEAN CORPUSCULAR HEMOGLOBIN 32.9 pg (27.0-33.0); MEAN CORPUSCULAR HGB CONC 31.4 g/dl (32.0-36.5); MEAN CORPUSCULAR VOLUME 104.6 fl (80.0-96.0); PLATELET COUNT, AUTOMATED 89 10^3/uL (150-450); RED BLOOD COUNT 4.17 10^6/uL (4.00-5.40); WHITE BLOOD COUNT 4.4 10^3/uL (4.0-10.0)
[2021-11-20 08:12] LABS: CALCIUM LEVEL 9.4 MG/DL (8.8-10.2); CREATININE FOR GFR 1.26 MG/DL (0.55-1.30); GLOMERULAR FILTRATION RATE 43.5 (>32)
[2021-11-20 08:54] LABS: POTASSIUM SERUM 5.6 MEQ/L (3.5-5.1)
[2021-11-20] MEDS: POTASSIUM CHLORIDE 10% LIQ 20 MEQ/15 ML UDC PO SCH (09:00)
[2021-11-20] MEDS: SPIRONOLACTONE 25 MG TAB PO SCH (10:08)
[2021-11-20] MEDS: CARVedilol 3.125 MG TAB PO SCH ×2 (10:09→21:56)
[2021-11-20] MEDS: CLOPIDOGREL 75 MG TAB PO SCH (10:09)
[2021-11-20] MEDS: FUROSEMIDE 40MG/4ML VIAL (J1940) IV SCH (12:14)
[2021-11-20 14:00] VITALS: BP 103/67
[2021-11-20 19:08] LABS: MAGNESIUM LEVEL 1.8 MG/DL (1.7-2.2)
[2021-11-20 21:27] VITALS: BP 128/83
[2021-11-20] MEDS: SIMVASTATIN 40 MG TAB PO SCH (21:56)
[2021-11-21] MEDS: FUROSEMIDE 40MG/4ML VIAL (J1940) IV SCH ×2 (01:46→13:16)
[2021-11-21] MEDS: LEVALBUTEROL 1.25 MG/0.5 ML CONCENTRATE NEB NEB PRN (01:47)
[2021-11-21 05:06] VITALS: BP 117/79
[2021-11-21 07:17] LABS: HEMATOCRIT 44.4 % (36.0-47.0); HEMOGLOBIN 13.6 g/dl (12.0-15.5); MEAN CORPUSCULAR HEMOGLOBIN 32.5 pg (27.0-33.0); MEAN CORPUSCULAR HGB CONC 30.6 g/dl (32.0-36.5); MEAN CORPUSCULAR VOLUME 106.2 fl (80.0-96.0); RED BLOOD COUNT 4.18 10^6/uL (4.00-5.40); WHITE BLOOD COUNT 4.3 10^3/uL (4.0-10.0)
[2021-11-21 07:25] LABS: PLATELET COUNT, AUTOMATED 83 10^3/uL (150-450)
[2021-11-21 08:22] LABS: CALCIUM LEVEL 9.3 MG/DL (8.8-10.2); CREATININE FOR GFR 1.46 MG/DL (0.55-1.30); GLOMERULAR FILTRATION RATE 36.7 (>32); POTASSIUM SERUM 4.8 MEQ/L (3.5-5.1)
[2021-11-21] MEDS: CARVedilol 3.125 MG TAB PO SCH ×2 (09:00→21:00)
[2021-11-21] MEDS: SPIRONOLACTONE 25 MG TAB PO SCH (10:31)
[2021-11-21] MEDS: CLOPIDOGREL 75 MG TAB PO SCH (10:31)
[2021-11-21 13:14] VITALS: BP 107/75
[2021-11-21 14:00] VITALS: BP 108/77
[2021-11-21] MEDS: FUROSEMIDE 40 MG TAB PO SCH (17:00)
[2021-11-21] MEDS: RAMELTEON 8 MG TAB (ROZEREM) PO SCH (21:52)
[2021-11-21] MEDS: SIMVASTATIN 40 MG TAB PO SCH (21:52)
[2021-11-21 22:00] VITALS: BP 106/74
[2021-11-22 05:34] VITALS: BP 110/71
[2021-11-22 07:42] LABS: HEMATOCRIT 44.1 % (36.0-47.0); HEMOGLOBIN 13.6 g/dl (12.0-15.5); MEAN CORPUSCULAR HEMOGLOBIN 32.5 pg (27.0-33.0); MEAN CORPUSCULAR HGB CONC 30.8 g/dl (32.0-36.5); MEAN CORPUSCULAR VOLUME 105.3 fl (80.0-96.0); RED BLOOD COUNT 4.19 10^6/uL (4.00-5.40); WHITE BLOOD COUNT 5.6 10^3/uL (4.0-10.0)
[2021-11-22 07:43] LABS: PLATELET COUNT, AUTOMATED 89 10^3/uL (150-450)
[2021-11-22 08:00] LABS: CALCIUM LEVEL 9.4 MG/DL (8.8-10.2); CREATININE FOR GFR 1.39 MG/DL (0.55-1.30); GLOMERULAR FILTRATION RATE 38.8 (>32); MAGNESIUM LEVEL 1.9 MG/DL (1.8-2.4); POTASSIUM SERUM 4.6 MEQ/L (3.5-5.1)
[2021-11-22] MEDS: SPIRONOLACTONE 25 MG TAB PO SCH (10:13)
[2021-11-22] MEDS: CARVedilol 3.125 MG TAB PO SCH ×2 (10:14→21:00)
[2021-11-22] MEDS: FUROSEMIDE 40 MG TAB PO SCH ×2 (10:14→16:31)
[2021-11-22] MEDS: CLOPIDOGREL 75 MG TAB PO SCH (10:15)
[2021-11-22 14:00] VITALS: BP 103/62
[2021-11-22 20:14] VITALS: BP 122/71
[2021-11-22] MEDS: RAMELTEON 8 MG TAB (ROZEREM) PO SCH (21:05)
[2021-11-22] MEDS: SIMVASTATIN 40 MG TAB PO SCH (21:05)
[2021-11-23 06:00] VITALS: BP 101/75
[2021-11-23 06:54] LABS: HEMATOCRIT 43.2 % (36.0-47.0); HEMOGLOBIN 13.5 g/dl (12.0-15.5); MEAN CORPUSCULAR HEMOGLOBIN 32.3 pg (27.0-33.0); MEAN CORPUSCULAR HGB CONC 31.3 g/dl (32.0-36.5); MEAN CORPUSCULAR VOLUME 103.3 fl (80.0-96.0); RED BLOOD COUNT 4.18 10^6/uL (4.00-5.40); WHITE BLOOD COUNT 4.1 10^3/uL (4.0-10.0)
[2021-11-23 06:55] LABS: PLATELET COUNT, AUTOMATED 88 10^3/uL (150-450)
[2021-11-23 07:00] LABS: INR 2.09; PROTHROMBIN TIME 23.9 SECONDS (12.7-14.5)
[2021-11-23 07:13] LABS: CALCIUM LEVEL 9.3 MG/DL (8.8-10.2); CREATININE FOR GFR 1.47 MG/DL (0.55-1.30); GLOMERULAR FILTRATION RATE 36.4 (>32); POTASSIUM SERUM 4.6 MEQ/L (3.5-5.1)
[2021-11-23 09:48] VITALS: BP 98/72
[2021-11-23] MEDS: SPIRONOLACTONE 25 MG TAB PO SCH (10:23)
[2021-11-23] MEDS: CARVedilol 3.125 MG TAB PO SCH ×2 (10:24→21:00)
[2021-11-23] MEDS: FUROSEMIDE 40MG/4ML VIAL (J1940) IV SCH ×3 (10:24→16:20)
[2021-11-23] MEDS: CLOPIDOGREL 75 MG TAB PO SCH (10:27)
[2021-11-23 14:00] VITALS: BP 112/77
[2021-11-23] MEDS: WARFARIN SOD 4MG TAB PO SCH (16:16)
[2021-11-23 16:20] VITALS: BP 98/64
[2021-11-23 21:00] VITALS: BP 113/75
[2021-11-23] MEDS: SIMVASTATIN 40 MG TAB PO SCH (21:35)
[2021-11-23] MEDS: RAMELTEON 8 MG TAB (ROZEREM) PO SCH (21:35)
[2021-11-24] VITALS (9 sets, daily range): BP systolic 88–118; BP diastolic 50–82
[2021-11-24] MEDS: FUROSEMIDE 40MG/4ML VIAL (J1940) IV SCH ×3 (01:59→17:40)
[2021-11-24 06:25] LABS: INR 2.23; PROTHROMBIN TIME 25.1 SECONDS (12.7-14.5)
[2021-11-24] MEDS: CARVedilol 3.125 MG TAB PO SCH ×2 (08:18→20:29)
[2021-11-24] MEDS: CLOPIDOGREL 75 MG TAB PO SCH (08:19)
[2021-11-24] MEDS: SPIRONOLACTONE 25 MG TAB PO SCH (08:20)
[2021-11-24] MEDS ORDERED: PILL CUTTER 1 EACH XX PRN (09:55)
[2021-11-24] MEDS ORDERED: MIDODRINE 5 MG TAB PO ONE (11:00)
[2021-11-24 13:03] LABS: HEMATOCRIT 42.6 % (36.0-47.0); MEAN CORPUSCULAR HEMOGLOBIN 33.6 pg (27.0-33.0); MEAN CORPUSCULAR HGB CONC 32.9 g/dl (32.0-36.5); MEAN CORPUSCULAR VOLUME 102.2 fl (80.0-96.0); RED BLOOD COUNT 4.17 10^6/uL (4.00-5.40); WHITE BLOOD COUNT 4.2 10^3/uL (4.0-10.0)
[2021-11-24 13:04] LABS: PLATELET COUNT, AUTOMATED 88 10^3/uL (150-450)
[2021-11-24 13:21] LABS: BILIRUBIN,TOTAL 1.2 MG/DL (0.2-1.0); CALCIUM LEVEL 9.6 MG/DL (8.8-10.2); CREATININE FOR GFR 1.49 MG/DL (0.55-1.30); GLOMERULAR FILTRATION RATE 35.8 (>32); POTASSIUM SERUM 4.6 MEQ/L (3.5-5.1); TOTAL PROTEIN 6.9 GM/DL (6.4-8.2)
[2021-11-24] MEDS ORDERED: LIDOCAINE 1% MDV 20ML VIAL As Ordered ONE (15:17)
[2021-11-24] MEDS ORDERED: SODIUM CHLORIDE 0.9% INJ 10 ML SYR IV PRN (17:15)
[2021-11-24] MEDS: WARFARIN SOD 4MG TAB PO SCH (17:40)
[2021-11-24] MEDS ORDERED: SODIUM CHLORIDE 0.9% INJ 10 ML SYR IV SCH (18:00)
[2021-11-24] MEDS: RAMELTEON 8 MG TAB (ROZEREM) PO SCH (20:30)
[2021-11-24] MEDS: SIMVASTATIN 40 MG TAB PO SCH (20:30)
[2021-11-24] MEDS ORDERED: DIGOXIN 0.25 MG TAB PO SCH (21:00)
[2021-11-25] MEDS ORDERED: LEVOTHYROXINE 37.5MCG PER 1/2TAB (0.0375MG) PO SCH (06:00)
[2021-11-25] MEDS ORDERED: FUROSEMIDE 100MG/10ML VIAL (J1940) IV SCH (09:00)
== END 2021-11-24 22:10 | disposition expired | DRG 871 ==
LOC: M ED 18:28 → M ED INP 21:11 → M PCU 11-07 00:08 → M MSPAV 11-19 11:07 → M PCU 11-24 09:02
PROVIDERS: ADMIT Internal Medicine; ATTEND Family Medicine
PROC: 02HV33Z Insertion of Infusion Device into Superior Vena Cava, Percutaneous Approach (ICD-10-PCS; principal; 2021-11-07 12:22)
PROC: 02HV33Z Insertion of Infusion Device into Superior Vena Cava, Percutaneous Approach (ICD-10-PCS; 2021-11-24)
DX: A41.9 Sepsis, unspecified organism (principal); J18.9 Pneumonia, unspecified organism; I50.23 Acute on chronic systolic (congestive) heart failure; R65.21 Severe sepsis with septic shock; J96.01 Acute respiratory failure with hypoxia; Z68.41 Body mass index [BMI] 40.0-44.9, adult; E66.2 Morbid (severe) obesity with alveolar hypoventilation; I24.8 Other forms of acute ischemic heart disease; N17.9 Acute kidney failure, unspecified; I13.0 Hypertensive heart and chronic kidney disease with heart failure and stage 1 through stage 4 chronic kidney disease, or unspecified chronic kidney disease; I48.20 Chronic atrial fibrillation, unspecified; E87.1 Hypo-osmolality and hyponatremia; E87.2 Acidosis; R57.0 Cardiogenic shock; I48.91 Unspecified atrial fibrillation; I27.20 Pulmonary hypertension, unspecified; R31.9 Hematuria, unspecified; R68.0 Hypothermia, not associated with low environmental temperature; E80.6 Other disorders of bilirubin metabolism; E78.5 Hyperlipidemia, unspecified; D69.6 Thrombocytopenia, unspecified; Z79.899 Other long term (current) drug therapy; Z88.6 Allergy status to analgesic agent